=== PATIENT | female | born 1995 | race African-American/Black ===

== ENCOUNTER 2016-10-05 10:17 | Emergency (ER) | payer BC ==
[~2016-10-05] VITALS: Wt 154.0 kg
[2016-10-05] MEDS ORDERED: morphine 4 MG/ML VIAL IV STA (10:45)
[2016-10-05] MEDS ORDERED: SOD CHLORIDE 0.9% 1,000 ML IV STA (10:45)
[2016-10-05 11:33] LABS: ADD UMIC YES; UR ASCORBIC ACID NEGATIVE (NEGATIVE); UR BILIRUBIN (Dip) NEGATIVE (NEGATIVE); UR BLOOD (Dip) 2+ mg/dL (NEGATIVE); UR CLARITY CLEAR (CLEAR); UR COLOR YELLOW (YELLOW); UR GLUCOSE (Dip) NEGATIVE (NEGATIVE); UR KETONES (Dip) NEGATIVE (NEGATIVE); UR LEUKOCYTE ESTERASE (Dip) NEGATIVE Leu/ul (NEGATIVE); UR NITRITE (Dip) NEGATIVE (NEGATIVE); UR RBC 1 /HPF (0-5); UR SPECIFIC GRAVITY (Dip) 1.014 (1.003-1.030); UR TOTAL PROTEIN (Dip) NEGATIVE (NEGATIVE); UR UROBILINOGEN (Dip) NEGATIVE (NEGATIVE)
[2016-10-05 11:37] LABS: BASOPHIL # 0.1 10^3/ul (0.0-0.1); BASOPHILS % 0.6 % (0.0-2.0); EOSINOPHILS # 0.2 10^3/ul (0.0-0.5); EOSINOPHILS % 1.8 % (0.0-7.0); HEMATOCRIT 34.7 % (37.0-47.0); HEMOGLOBIN 12.3 g/dl (12.0-16.0); LYMPHOCYTES # 3.3 10^3/ul (0.8-2.9); LYMPHOCYTES % 28.8 % (15.0-51.0); MEAN CORPUSCULAR HEMOGLOBIN 29.1 pg (29.0-33.0); MEAN CORPUSCULAR HGB CONC 35.4 g/dl (32.0-37.0); MEAN PLATELET VOLUME 10.5 fl (7.4-10.4); NEUTROPHIL # 6.7 10^3/ul (1.6-7.5); NEUTROPHILS % 59.3 % (39.0-77.0); PLATELET COUNT 375 10^3/UL (140-415); RED BLOOD COUNT 4.23 10^6/ul (4.20-5.40); RED CELL DISTRIBUTION WIDTH 12.8 % (11.5-14.5); WHITE BLOOD COUNT 11.3 10^3/ul (4.8-10.8)
[2016-10-05 11:59] LABS: ALBUMIN 4.4 g/dl (3.3-4.9); ALBUMIN/GLOBULIN RATIO 1.07; BILIRUBIN,INDIRECT 0.4 mg/dl (0-1.1); BILIRUBIN,TOTAL 0.4 mg/dl (0.2-1.3); CALCIUM 9.3 mg/dl (8.4-10.2); CREATININE 0.7 mg/dl (0.44-1.00); POTASSIUM 4.1 mmol/L (3.5-5.1); TOTAL PROTEIN 8.5 g/dl (6.1-8.1)
--- NOTE | 2016-10-05 12:28 | RADRPT ---
PROCEDURE: CT Abdomen and Pelvis without contrast. CLINICAL INDICATION: Abdominal pain TECHNIQUE: CT of the abdomen and pelvis was performed on a multi-detector scanner without IV contr ast. Coronal and sagittal images were reformatted from the axial data set. One or more of the foll owing dose reduction techniques were used: automated exposure control, adjustment of the mA and/or k V according to patient size, use of iterative reconstruction technique. CTDI = 20.34 mGy. DLP = 123 7.85 mGy-cm. COMPARISON: None. FINDINGS: CT abdomen: The lung bases are clear. The heart size is normal, without pericardial effusion. Hepatic fatty in filtration and hepatomegaly (20 cm) are noted, without evidence of focal mass. Gallbladder, biliary tree, pancreas, spleen, adrenal glands and kidneys are unremarkable. No urolithiasis or obstructiv e uropathy is identified. The stomach is grossly unremarkable. The aorta is of normal caliber. There is no retroperitoneal lymphadenopathy. The shaylee hepatis reg ion is clear. CT pelvis: There is no bowel obstruction, free intraperitoneal air or abscess. The appendix is well visualized and normal. No diverticulosis, diverticulitis or colitis is identified. Small fat containing supr aumbilical ventral hernia is seen, without incarceration. Urinary bladder, uterus and left adnexa a re unremarkable. Right adnexa is asymmetrically prominent (4 cm maximal dimension). No pelvic free fluid or lymphadenopathy is seen. The surrounding osseous structures are unremarkable. No osteolytic or osteoblastic lesion is detect ed. IMPRESSION: 1. Hepatic steatosis and hepatomegaly are noted. 2. Small fat containing supraumbilical ventral hernia is seen, without incarceration. 3. Right adnexa is asymmetrically prominent - underlying ovarian cyst or mass is not excluded - con s3b multi sensor operator ultrasound for further evaluation, as clinically warranted. RPTAT: PP .Cedric Lyons MD, Date Time Electronically viewed and signed by .Cedric Lyons MD, MD on 10/05/2016 12:28 .R/
--- NOTE | 2016-10-05 13:59 | RADRPT ---
PROCEDURE: US Pelvis. CLINICAL INDICATION: lower abdominal pain TECHNIQUE: Multiple sonographic images of the pelvis were obtained utilizing a transabdominal and endovaginal technique. The images were reviewed on a PACS workstation. COMPARISON: None. FINDINGS: The uterus is visualized and measures 3.1 x 3.9 x 6.6 cm. The endometrial echo complex is normal and measures 1.8 mm . The right ovary measures 3.7 x 4.1 x 5.2 cm. There is a large simple cyst in the right ovary measur ing 3.3 x 3.7 x 4.5 cm. There is normal vascular flow to the right ovary. The left ovary is not visualized secondary to overlying bowel gas. No free fluid is identified. No adnexal masses are identified. IMPRESSION: 1. Large simple cyst in the right ovary measuring 3.3 x 3.7 x 4.5 cm. There is normal vascular hannah w to the right ovary. 2. The left ovary is not visualized secondary to overlying bowel gas. RPTAT:AAJJ Physician Louisa Date Time Electronically viewed and signed by Physician Louisa on 10/05/2016 13:59 /
[2016-10-05] MEDS ORDERED: TRAM50TA2 PO (14:17)
[2016-10-05] MEDS ORDERED: IBUP800T25 PO (14:17)
[2016-10-05 14:20] VITALS: BP 151/79; PULSE 82; RESP 18
--- NOTE | 2016-10-05 14:51 | ERD ---
ER Documentation Chief Complaint Date/Time DATE: 10/05/16 TIME: 14:46 Chief Complaint ON AND OFF ABD PAIN, LOWER BACK PAIN, ONSET SEVERAL YEARS HPI 21-year-old female patient with no significant past medical history presents the ED complaining of abdominal pain that started 1 month ago. Reports that she has intermittent abdominal pain predominantly in the right and left lower quadrants. Reports that she has some vaginal bleeding that is heavier than usual. Reports that she is currently on her last menses. States that this does not feel like her abdominal cramps. Denies any chest pain, shortness of breath, wheezing, nausea, vomiting, diarrhea. Denies any dysuria, urgency, frequency, hematuria, vaginal discharge. Denies being sexually active. ROS All systems reviewed and are negative except as per history of present illness. Medications Home Meds Active Scripts Ibuprofen* (Motrin*) 800 Mg Tab, 800 MG PO Q6, #30 TAB take with food Prov:KELLY MARTINEZ PA-C 10/05/16 Tramadol HCl (Tramadol HCl) 50 Mg Tablet, 50 MG PO QHS, #20 TAB Prov:KELLY MARTINEZ PA-C 10/05/16 Allergies Allergies: Coded Allergies: Iodine and Iodide Containing Produc (Verified Allergy, Unknown, iv contrast, 10/05/16) shellfish derived (Verified Allergy, Unknown, 10/05/16) PMhx/Soc Medical and Surgical Hx: pt denies Surgical Hx Hx Miscellaneous Medical Probl: Yes (chronic back pain ) Hx Alcohol Use: No Hx Substance Use: No Hx Tobacco Use: No Physical Exam Vitals Vital Signs Date Time Temp Pulse Resp B/P Pulse Ox O2 Delivery O2 Flow Rate FiO2 10/05/16 14:20 82 18 151/79 99 Room Air 10/05/16 10:20 98.4 88 18 185/113 99 Physical Exam Const: [id number], well-nourished. In no acute distress. Head: Atraumatic, normocephalic Eyes: Normal Conjunctiva without injection. No purulent discharge. ENT: Normal external ear, nose. Moist oropharynx without tonsillar exudates. Non -erythematous pharynx. Uvula midline. No drooling. No trismus. Neck: No cervical midline tenderness. Full range of motion. No meningismus. No cervical lymphadenopathy. No JVD. Resp: Clear to auscultation bilaterally. No wheezing, rhonchi, rales, or crackles. No accessory muscle use. No retractions. Cardio: Regular rate and rhythm. No murmurs, rubs or gallops. Abd: Soft, tender to palpation of the right and left lower quadrants, non distended. Normal bowel sounds. No palpable masses. No rebound tenderness. No guarding. Negative McBurney's point. Negative psoas sign. Negative obturator sign. Skin: No petechiae or rashes Back: No midline tenderness. No CVA tenderness. Ext: No cyanosis, or edema. Neur: Awake and alert. Normal gait. Normal coordination. Psych: Normal Mood and Affect Results 24 hrs Laboratory Tests Test 10/05/16 11:00 10/05/16 11:15 Urine Color YELLOW Urine Clarity CLEAR Urine pH 7.0 Urine Specific Mcguffey 1.014 Urine Ketones NEGATIVEmg/dL Urine Nitrite NEGATIVEmg/dL Urine Bilirubin NEGATIVEmg/dL Urine Urobilinogen NEGATIVEmg/dL Urine Leukocyte Esterase NEGATIVELeu/ul Urine Microscopic RBC 1/HPF Urine Microscopic WBC 0/HPF Urine Hemoglobin 2+mg/dL Urine Glucose NEGATIVEmg/dL Urine Total Protein NEGATIVEmg/dl White Blood Count 11.310^3/ul Red Blood Count 4.2310^6/ul Hemoglobin 12.3g/dl Hematocrit 34.7% Mean Corpuscular Volume 82.0fl Mean Corpuscular Hemoglobin 29.1pg Mean Corpuscular Hemoglobin Concent 35.4g/dl Red Cell Distribution Width 12.8% Platelet Count 28788^3/UL Mean Platelet Volume 10.5fl Neutrophils % 59.3% Lymphocytes % 28.8% Monocytes % 9.0% Eosinophils % 1.8% Basophils % 0.6% Nucleated Red Blood Cells % 0.0/100WBC Neutrophils # 6.710^3/ul Lymphocytes # 3.310^3/ul Monocytes # 1.010^3/ul Eosinophils # 0.210^3/ul Basophils # 0.110^3/ul Nucleated Red Blood Cells # 0.010^3/ul Sodium Level 143mmol/L Potassium Level 4.1mmol/L Chloride Level 102mmol/L Carbon Dioxide Level 25mmol/L Anion Gap 20 Blood Urea Nitrogen 10mg/dl Creatinine 0.70mg/dl Glucose Level 88mg/dl Calcium Level 9.3mg/dl Total Bilirubin 0.4mg/dl Direct Bilirubin 0.00mg/dl Indirect Bilirubin 0.4mg/dl Aspartate Amino Transf (AST/SGOT) 37IU/L Alanine Aminotransferase (ALT/SGPT) 46IU/L Alkaline Phosphatase 71IU/L Total Protein 8.5g/dl Albumin 4.4g/dl Globulin 4.10g/dl Albumin/Globulin Ratio 1.07 Lipase 76U/L Current Medications Medications (Trade) Dose Ordered Sig/[place] Route PRN Reason Start Time Stop Time Status Last Admin Dose Admin Sodium Chloride (NS) 1,000 ml @ 1,000 mls/hr Q1H STAT IV 10/05/16 10:45 10/05/16 11:44 DC 10/05/16 11:22 Morphine Sulfate (morphine) 4 mg ONCE STAT IV 10/05/16 10:45 10/05/16 10:50 DC 10/05/16 11:20 Procedures/MDM This is a 21-year-old female patient with no sniffing a past medical history presents to the ED complaining of abdominal pain that started intermittently 1 month ago. Patient is afebrile and nontoxic-appearing. Patient's blood pressure was 185/113. Patient's blood pressure was elevated (>120/80) but appears stable without evidence of hypertension emergency or urgency. The patient was counseled about the risks of hypertension and urged to pursue outpatient monitoring and therapy within a week with their primary care physician. Patient was further worked up with CBC, CMP, lipase, UA, urine , CT of the abdomen and pelvis without contrast. Patient's pain and symptoms have improved after treatment with 1 L of normal saline, 4 mg IV morphine. CBC: No leukocytosis. No e/o of systemic infection. No e/o anemia. CMP: No e/o severe acidosis, alkalosis, renal failure, diabetic ketoacidosis, liver disease Lipase within normal limits. Urine: No leukocyte esterase, no nitrites, no hematuria. Urine : Negative PROCEDURE: CT Abdomen and Pelvis without contrast. CLINICAL INDICATION: Abdominal pain TECHNIQUE: CT of the abdomen and pelvis was performed on a multi-detector scanner without IV contrast. Coronal and sagittal images were reformatted from the axial data set. One or more of the following dose reduction techniques were used: automated exposure control, adjustment of the mA and/or kV according to patient size, use of iterative reconstruction technique. CTDI = 20.34 mGy. DLP = 1237.85 mGy-cm. COMPARISON: None. FINDINGS: CT abdomen: The lung bases are clear. The heart size is normal, without pericardial effusion. Hepatic fatty infiltration and hepatomegaly (20 cm) are noted, without evidence of focal mass. Gallbladder, biliary tree, pancreas, spleen, adrenal glands and kidneys are unremarkable. No urolithiasis or obstructive uropathy is identified. The stomach is grossly unremarkable. The aorta is of normal caliber. There is no retroperitoneal lymphadenopathy. The shaylee hepatis region is clear. CT pelvis: There is no bowel obstruction, free intraperitoneal air or abscess. The appendix is well visualized and normal. No diverticulosis, diverticulitis or colitis is identified. Small fat containing supraumbilical ventral hernia is seen, without incarceration. Urinary bladder, uterus and left adnexa are unremarkable. Right adnexa is asymmetrically prominent (4 cm maximal dimension) . No pelvic free fluid or lymphadenopathy is seen. The surrounding osseous structures are unremarkable. No osteolytic or osteoblastic lesion is detected. IMPRESSION: 1. Hepatic steatosis and hepatomegaly are noted. 2. Small fat containing supraumbilical ventral hernia is seen, without incarceration. 3. Right adnexa is asymmetrically prominent - underlying ovarian cyst or mass is not excluded - consider ultrasound for further evaluation, as clinically warranted. PROCEDURE: US Pelvis. CLINICAL INDICATION: lower abdominal pain TECHNIQUE: Multiple sonographic images of the pelvis were obtained utilizing a transabdominal and endovaginal technique. The images were reviewed on a PACS workstation. COMPARISON: None. FINDINGS: The uterus is visualized and measures 3.1 x 3.9 x 6.6 cm. The endometrial echo complex is normal and measures 1.8 mm . The right ovary measures 3.7 x 4.1 x 5.2 cm. There is a large simple cyst in the right ovary measuring 3.3 x 3.7 x 4.5 cm. There is normal vascular flow to the right ovary. The left ovary is not visualized secondary to overlying bowel gas. No free fluid is identified. No adnexal masses are identified. IMPRESSION: 1. Large simple cyst in the right ovary measuring 3.3 x 3.7 x 4.5 cm. There is normal vascular flow to the right ovary. 2. The left ovary is not visualized secondary to overlying bowel gas. Patient symptoms are likely secondary to the ovarian cyst seen on the ultrasound. Patient also has an umbilical hernia. There is low suspicion for acute incarceration, stimulation. Low suspicion for gastritis, GERD, peptic ulcer disease, cholecystitis, choledocholithiasis, cholangitis, pancreatitis, appendicitis, bowel obstruction, ileus, volvulus, nephrolithiasis, pyelonephritis, hepatitis, perforated viscus, diverticulitis, abdominal hernia, acute abdomen, mesenteric ischemia or other emergent conditions. Discharge medications: Ibuprofen, Tramadol Follow up with primary care physician in 1-2 days for referral to geriatric social worker. Instructed patient to return to the ED sooner for any worsening symptoms. Patient's questions were answered. Patient understood and agreed with discharge plan. Patient discharged stable. Departure Diagnosis: Primary Impression: Abdominal pain Abdominal location: lower abdomen, unspecified Qualified Code: R10.30 - Lower abdominal pain Condition: Stable Patient Instructions: Abdominal Pain, Hernia (Inguinal, Ventral, Umbilical), Ovarian Cyst Referrals: [facility] YOU HAVE RECEIVED A MEDICAL SCREENING EXAM AND THE RESULTS INDICATE THAT YOU DO NOT HAVE A CONDITION THAT REQUIRES URGENT TREATMENT IN THE EMERGENCY DEPARTMENT. FURTHER EVALUATION AND TREATMENT OF YOUR CONDITION CAN WAIT UNTIL YOU ARE SEEN IN YOUR DOCTORS OFFICE WITHIN THE NEXT 1-2 DAYS. IT IS YOUR RESPONSIBILITY TO MAKE AN APPOINTMENT FOR FOLOW-UP CARE. IF YOU HAVE A PRIMARY DOCTOR --you should call your primary doctor and schedule an appointment IF YOU DO NOT HAVE A PRIMARY DOCTOR YOU CAN CALL OUR PHYSICIAN REFERRAL HOTLINE AT IF YOU CAN NOT AFFORD TO SEE A PHYSICIAN YOU CAN CHOSE FROM THE FOLLOWING [facility] [address] [facility]. [facility] [address] [facility]. [facility] [address] [facility]. [facility] [address] [facility] [address] [facility]. [facility]. [address] [facility] YOU HAVE RECEIVED A MEDICAL SCREENING EXAM AND THE RESULTS INDICATE THAT YOU DO NOT HAVE A CONDITION THAT REQUIRES URGENT TREATMENT IN THE EMERGENCY DEPARTMENT. FURTHER EVALUATION AND TREATMENT OF YOUR CONDITION CAN WAIT UNTIL YOU ARE SEEN IN YOUR DOCTORS OFFICE WITHIN THE NEXT 1-2 DAYS. IT IS YOUR RESPONSIBILITY TO MAKE AN APPOINTMENT FOR FOLOW-UP CARE. IF YOU HAVE A PRIMARY DOCTOR --you should call your primary doctor and schedule and appointment IF YOU DO NOT HAVE A PRIMARY DOCTOR YOU CAN CALL OUR PHYSICIAN REFERRAL HOTLINE AT . IF YOU CAN NOT AFFORD TO SEE A PHYSICIAN YOU CAN CHOSE FROM THE FOLLOWING [facility] INSTITUTIONS: [facility] [address] [place] [address] [facility] [address] [place] [address] [facility] [address] [place] [address] [facility]/SPECIALTIES SURVEY MANAGER RE[place] [address] [facility] [address] [place] [address]ABUSLEME KATHIE [address] [place] [address] [address] [place] [address] [place] [address] [address] [address] [facility], [address] [address] [facility] [address] [place] [address] [facility] [address] [place] [address] [phone] [facility] [address] - DANIEL URE[address]A [address], [facility] [address] [address] [address] [facility] [address], [facility] [address] [address] [address] [place] [address] [facility] Hours: 8:00 am - 5:00 pm Additional Instructions: FOLLOW UP WITH YOUR PRIMARY CARE PHYSICIAN TOMORROW for a referral to see an OB/ CLINICAL CONSULTANT.Return to this facility if you are not improving as expected. You have been given a medicine which may cause drowsiness.DO NOT DRIVE OR OPERATE DANGEROUS MACHINERY while taking this medicine! KELLY MARTINEZ PA-C Oct 05, 2016 14:51 KELLY MARTINEZ PA-C Oct 05, 2016 14:51
== END 2016-10-05 14:26 | disposition home or self-care (01) ==
LOC: FTE 10:17
DX: R10.32 Left lower quadrant pain (principal); R10.31 Right lower quadrant pain; R10.2 Pelvic and perineal pain
CPT/HCPCS: 36415; 74176; 76830; 76856; 80053; 81001; 83690; 85025; 96374; J2270; J7030; Z7502

== ENCOUNTER 2017-03-14 22:16 | Emergency (ER) | END 2017-03-15 02:50 | disposition home or self-care (01) ==